=== PATIENT | female | born 1995 | race Caucasian/White ===

== ENCOUNTER 2019-11-20 13:22 | Emergency (ER) | payer SELFPAY ==
[~2019-11-20] VITALS: Ht 167 cm; Wt 66.0 kg
[2019-11-20 13:50] LABS: BILIRUBIN,URINE NEGATIVE (NEGATIVE); CLARITY,URINE SL CLOUDY; COLOR,URINE YELLOW; GLUCOSE, URINE (UA) NEGATIVE (NEGATIVE); KETONES,URINE NEGATIVE (NEGATIVE); LEUKOCYTE ESTERASE ,URINE NEGATIVE (NEGATIVE); NITRITE,URINE NEGATIVE (NEGATIVE); PROTEIN,URINE NEGATIVE (NEGATIVE)
[2019-11-20 14:07] LABS: BACTERIA,URINE MODERATE /HPF; RBC,URINE RARE /HPF; WBC,URINE 0-2 /HPF
--- NOTE | 2019-11-20 14:08 | ED GU-Female ---
General Chief Complaint: Abdominal/GI Problems Stated Complaint: LOWER R SIDE PAIN Nursing Triage Note: PT PRESENTS TO ED WITH COMPLAINTS OF R LOWER ABDOMINAL/PELVIC PAIN INTERMITTENTLY X 2 DAYS. PT ALSO REPORTS SHE HAS HAD COLD/COUGH S/S X 4 DAYS. PT DENIES N/V/D. PT DENIES ANY URINARY ISSUES AT THIS TIME. Nursing Sepsis Screen: No Definite Risk History of Present Illness Date Seen by Provider: Nov 20, 2019 Time Seen by Provider: 13:40 Initial Comments 24 year old female reports for intermittent right lower quad pain, is not hurting at the time of presentation.. She denies any nausea or vomiting. She reports very trying to conceive, her child is approximately 19 months . She is taking multivitamin daily. She is under a lot of stress, as her travels for work and they are in that area with no family support. She is sli ghtly tearful. She hasn't done a home test that was negative however her last menstrual cycle began on October 26. She has no history of miscarriages. She denies any vaginal discharge or spotting. No history of previous abdominal surgeries. Timing/Duration: intermittent Location: RLQ Prior Genitourinary Problems: none Sexual [place] History: less than 2 months ago, single partner Associated Symptoms: abdominal pain; No diaphoresis, No dysuria, No fever/chills, No loss of bladder control, No lower back pain, No lumps, No mass, No nausea/vomiting, No nocturia, No polyuria, No swelling, No syncope, No urinary frequency, No other Allergies and Home Medications Allergies Coded Allergies: No Known Drug Allergies (Unverified , 11/20/19) Home Medications Nitrofurantoin Macrocrystal 100 Mg Capsule, 100 MG PO BID Prescribed by: KATERINE BELL on 11/20/19 1427 Patient Home Medication List Home Medication List Reviewed: Yes Review of Systems Review of Systems Constitutional: no symptoms reported, see HPI Gastrointestinal: RLQ, see HPI, abdominal pain (RLQ); No constipation, No d iarrhea, No heartburn, No loss of appetite, No nausea, No vomiting : No LMP: Oct 27, 2019 All Other Systemes Reviewed Negative Unless Noted: Yes Past Ogqauab-Bpogaz-Axdorh Hx Past Med/Social Hx: Reviewed Nursing Past Med/Soc Hx Patient Social History Alcohol Use: Denies Use Recreational Drug Use: No Smoking Status: Never a Smoker Recent Foreign Travel: No Contact w/Someone Who Travel: No Recent Infectious Disease Expo: No Recent Hopitalizations: No Seasonal Allergies Seasonal Allergies: No Past Medical History Surgeries: No Respiratory: No Cardiac: No Neurological: No Last Menstrual Period: Sep 25, 2019 Genitourinary: No Gastrointestinal: No Musculoskeletal: No Endocrine: No HEENT: No Cancer: No Psychosocial: No Integumentary: No Blood Disorders: No Physical Exam Vital Signs Vital Signs - First Documented 11/20/19 11/20/19 13:33 14:30 Temp 36.6 Pulse 126 Resp 18 B/P (MAP) 119/66 (83) Pulse Ox 96 O2 Delivery Room Air Capillary Refill : Less Than 3 Seconds Height, Weight, BMI Height: '" Weight: lbs. oz. kg; 23.00 BMI Method: General Appearance: WD/WN, no apparent distress Neck: non-tender, full range of motion, supple, normal inspection Cardiovascular: normal peripheral pulses, regular rate, rhythm Respiratory: chest non-tender, lungs clear, normal breath sounds Gastrointestinal: normal bowel sounds, non tender, soft; No distended, No guarding, No rebound, No tenderness Extremities: normal range of motion, non-tender, normal inspection, normal capillary refill Neurologic/Psychiatric: no motor/sensory deficits, alert, normal mood/affect, oriented x 3 Skin: normal color, warm/dry Progress/Results/Core Measures Suspected Sepsis Recent Fever Within 48 Hours: Yes Infection Criteria Present: None New/Unexplained Altered Menta: No Sepsis Screen: No Definite Risk SIRS Temperature: Pulse: 126 Respiratory Rate: 18 Blood Pressure 119 /66 Mean: 83 Results/Orders Lab Results Laboratory Tests Test 11/20/19 13:40 Range/Units Urine Color YELLOW Urine Clarity SL CLOUDY Urine pH 6.0 5-9 Urine Specific Hodge 1.025 H 1.016-1.022 Urine Protein NEGATIVE NEGATIVE Urine Glucose (UA) NEGATIVE NEGATIVE Urine Ketones NEGATIVE NEGATIVE Urine Nitrite NEGATIVE NEGATIVE Urine Bilirubin NEGATIVE NEGATIVE Urine Urobilinogen 0.2 < = 1.0 MG/DL Urine Leukocyte Esterase NEGATIVE NEGATIVE Urine RBC (Auto) TRACE-I NEGATIVE Urine RBC RARE /HPF Urine WBC 0-2 /HPF Urine Squamous Epithelial Cells 10-25 H /HPF Urine Crystals NONE /LPF Urine Bacteria MODERATE H /HPF Urine Casts NONE /LPF Urine Mucus NEGATIVE /LPF Urine Culture Indicated YES My Orders Orders - KATERINE BELL Urine Bedside (11/20/19 13:24) Ua Culture If Indicated (11/20/19 13:24) Urine Culture (11/20/19 13:40) Vital Signs/I&O 11/20/19 11/20/19 13:33 14:30 Temp 36.6 36.6 Pulse 126 98 Resp 18 18 B/P (MAP) 119/66 (83) 119/66 (83) Pulse Ox 96 99 O2 Delivery Room Air Capillary Refill : Less Than 3 Seconds Blood Pressure Mean: 83 Progress Note : Progress Note 1405 results of labs discussed with patient, she is less anxious and is at 8. Discharge instructions and return precautions reviewed with her in detail. talked about several options for things she can do in [place] with her Toddler, she is living with other travel workers of her husbands and none have kids. Departure Impression Primary Impression: Abdominal pain Qualified Codes: R10.31 - Right lower quadrant pain Additional Impression: UTI (urinary tract infection) Qualified Codes: N30.00 - Acute cystitis without hematuria Disposition: HOME, SELF-CARE Condition: Improved Departure-Patient Inst. Decision time for Depature: 14:05 Referrals: [facility] Patient Instructions: Urinary Tract Infection, Adult (DC) Add. Discharge Instructions: Increase water intake, 16 ounces every 2 hours while awake. Empty bladder every 2 hours while awake. Establish care with OB doctor [facility] as needed. Follow-up at [facility] if symptoms are not improving or worsen. He may take Tylenol 650 mg every 6-8 hours as needed for fever or pain. Take antibiotics as directed. Drink 1 cup of cranberry juice or eat 1 cup of fresh blueberries daily. Return to emergency department for new, urgent health care problems. All discharge instructions reviewed with patient and/or family. Voiced underst anding. Scripts Nitrofurantoin Macrocrystal (Nitrofurantoin) 100 Mg Capsule 100 MG PO BID, #10 CAP 0 Refills Prov: KATERINE BELL 11/20/19 KATERINE BELL Nov 20, 2019 14:08
[2019-11-20] MEDS ORDERED: NITR100C PO (14:27)
[2019-11-20 14:30] VITALS: BP 119/66
== END 2019-11-20 14:32 | disposition home or self-care (01) ==
LOC: ER 13:24
DX: N39.0 Urinary tract infection, site not specified (principal)
CPT/HCPCS: 81000; 84703; 87088; 99282